=== PATIENT | female | born 1935 | race Caucasian/White ===

== ENCOUNTER 2018-09-19 14:21 | Inpatient (IN) | payer MEDICARE, MEDICAID ==
--- NOTE | 2018-09-19 14:49 | ED Physician Chart ---
ED Chief Complaint/HPI - Patient Information Date Seen:: 09/19/18 Time Seen:: 14:25 Chief Complaint:: AMS History of Present Illness:: onset x one day of ALOC and AMS with elevated Blood Glucose; no report of trauma , H/As, LOC, S/T, neck pain, C/P, SOB, Abd. Pain, A/N/V/D/C, fever, chills, or urinary s/s Historian:: Patient, EMS Review:: Nurse's Note Reviewed, Old Chart Reviewed, EMS run form Reviewed ED Review of Systems - Review of Systems General/Constitutional: No fever, No chills, No weight loss, No weakness, No diaphoresis, No edema, No loss of appetite Skin: No skin lesions, No rash, No bruising Head: No headache, No light-headedness Eyes: No loss of vision, No pain, No diplopia ENT: No earache, No nasal drainage, No sore throat, No tinnitus Neck: No neck pain, No swelling, No thyromegaly, No stiffness, No mass noted Cardio Vascular: No chest pain, No palpitations, No PND, No orthopnea, No edema Pulmonary: No SOB, No cough, No sputum, No wheezing GI: No nausea, No vomiting, No diarrhea, No pain, No melena, No hematochezia, No constipation, No hematemesis G/U: No dysuria, No frequency, No hematuria, No nacturia Medical Center Representative: No vaginal discharge, No abnormal vaginal bleed, No contraction Musculoskeletal: No bone or joint pain, No back pain, No muscle pain Endocrine: No polyuria, No polydipsia Psychiatric: No prior psych history, No depression, No anxiety, No suicidal ideation, No homicidal ideation, No auditory hallucination, No visual hallucination Hematopoietic: No bruising, No lymphadenopathy Allergic/Immuno: No urticaria, No angioedema Neurological: No syncope, No focal symptoms, No weakness, No paresthesia, No headache, No seizure, No dizziness, Confusion, No vertigo ED Past Medical History - Past Medical History Obtainable: Yes Past Medical History: HTN, DM, Dyslipidemia, Arthritis, Dementia Family History: Diabetes Melitus, HTN Social History: Non Smoker, No Alcohol, No Drug Use, Surgical History: None Psychiatricy History: Dementia Medication: Reviewed Family Medical History - Family Member Mother History Unknown: Yes ED Physical Exam - Physical Examination General/Constitutional: Awake, Well-developed, well-nourished, Alert, No distress, GCS 15, Non-toxic appearing, Ambulatory Head: Atraumatic Eyes: Lids, conjuctiva normal, PERRL, EOMI Skin: Nl inspection, No rash, No skin lesions, No ecchymosis, Well hydrated, No lymphadenopathy ENMT: External ears, nose nl, TM canals nl, Nasal exam nl, Lips, teeth, gums nl , Oropharynx nl, Tonsils nl Neck: Nontender, Full ROM w/o pain, No JVD, No nuchal rigidity, No bruit, No mass, No stridor Respiratory: Nl effort/Exclusion, Clear to Auscultation, No Wheeze/Rhonchi/Rales Cardio Vascular: RRR, No murmur, gallop, rubs, NL S1 S2, Carotid/Femoral/Distal pulses equal bilaterally GI: No tenderness/rebounding/guarding, No organomegaly, No hernia, Normal BS's, Nondistended, No mass/bruits, No McBurney tenderness : No CVA tenderness Extremities: No tenderness or effusion, Full ROM, normal strength in all extremities, No edema, Normal digits & nails Neuro/Psych: Alert/oriented, DTR's symmetric, Normal sensory exam, Normal motor strength, Judgement/insight normal, Mood normal, Normal gait, No focal deficits Misc: Normal back, No paraspinal tenderness ED Labs/Radiology/EKG Results - Lab Results Comments:: Reviewed - EKG Interpretations EKG Time:: 14:58 Rate & Rhythm: 115; ST Comments:: non-specific st-t changes ED Septic Shock - . Is Septic Shock (SBP<90, OR Lactate>4 mmol\L) present?: No ED Reassessment (Disposition) - Reassessment Reassessment Condition:: Improved - Diagnosis Diagnosis:: Tachycardia; Dehydration; Hyperglycemia; Hypernatremia; Lactic Acidosis; Leukpocytosis; UTI; Sepsis - Aftercare/Follow up Instructions Aftercare/Follow-Up Instructions:: Counseled pt regarding lab results/diagnosis & need follow up, Counseled pt & family regarding lab results/diagnosis & need follow up - Patient Disposition Discharge/Transfer:: Acute Care w/in this hosp Accepting Physician:: Dr. Christie Time Called:: 1700 Time Responded:: 17:00 Admitted to:: Telemetry Spoke to:: Dr. Christie Admitting Medical Physician:: Dr. Christie Condition at Disposition:: Stable, Improved
[2018-09-19] MEDS ORDERED: Sodium Chloride 0.9% 1,000 ML IV ONE (14:52)
[2018-09-19 15:27] LABS: % BASOPHILS 0.3 % (0.0-2.0); % EOSINOPHILS 0.7 % (0.0-5.0); % LYMPHOCYTES 16.9 % (20.0-50.0); % MONOCYTES 4.8 % (2.0-10.0); % NEUTROPHILS 77.3 % (40.0-80.0); EOSINOPHILE ABSOLUTE 0.1 Th/cmm (0.1-0.4); HEMATOCRIT 39.6 % (41.0-60); HEMOGLOBIN 12.8 gm/dL (12-16); LYMPHOCYTE ABSOLUTE 2.2 Th/cmm (1.5-3.0); MEAN CORPUSCULAR HEMOGLOBIN 29.7 pg (27.0-31.0); MEAN CORPUSCULAR HGB CONC 32.3 pg (28.0-36.0); MEAN PLATELET VOLUME 7.4 fl; MONOCYTE ABSOLUTE 0.6 Th/cmm (0.3-1.0); NEUTROPHILE ABSOLUTE 9.9 Th/cmm (1.8-8.0); PLATELET COUNT 464 Th/cmm (150-400); RED CELL DISTRIBUTION WIDTH 13.9 % (11.5-20.0); WHITE BLOOD COUNT 12.8 Th/cmm (4.8-10.8)
[2018-09-19 15:31] LABS: URINE SOURCE MIDSTREAM
[2018-09-19 15:38] LABS: ALB/GLOB RATIO 0.9 (1.0-1.8); ALBUMIN 3.6 gm/dL (3.7-5.3); ALKALINE PHOSPHATASE 97 U/L (34-104); AMYLASE SERUM 31 U/L (29-103); ANION GAP 13.8 (7.0-16.0); BILIRUBIN,TOTAL 0.2 mg/dL (0.3-1.0); BUN - UREA NITROGEN 53 mg/dL (7-25); CALCIUM SERUM 9.7 mg/dL (8.6-10.3); CARBON DIOXIDE 26.7 mEq/L (21.0-31.0); CHLORIDE 132 mEq/L (98-107); CHOLESTEROL 150 mg/dL (<200); CREATININE - SERUM 1.3 mg/dL (0.6-1.2); CREATININE KINASE 277 U/L (30-223); GLUCOSE 119 mg/dL (70-105); HDL -HIGH DENSITY LIPOPROTEIN 47 mg/dL (23-92); LIPASE 19 U/L (11-82); POTASSIUM SERUM 3.5 mEq/L (3.5-5.1); SGOT 20 U/L (13-39); SGPT/ALT 20 U/L (7-52); TOTAL PROTEIN,SERUM 7.5 gm/dL (6.0-8.3); TRIGLYCERIDES 117 mg/dL (<150)
[2018-09-19 15:40] LABS: SODIUM SERUM 169 mEq/L (136-145)
[2018-09-19 15:45] LABS: INR 0.93 (0.5-1.4); PROTHROMBIN TIME (TEST) 9.7 SECONDS (9.5-11.5)
[2018-09-19] MEDS ORDERED: Sodium Chloride 0.9% 500 ML IV ONE (15:48)
[2018-09-19 16:49] LABS: URINE BILIRUBIN NEGATIVE (NEGATIVE); URINE BLOOD LARGE (NEGATIVE); URINE GLUCOSE (UA) 500 mg/dL (NEGATIVE); URINE KETONE NEGATIVE (NEGATIVE); URINE LEUKOCYTE ESTERASE LARGE (NEGATIVE); URINE MICROSCOPIC INDICATED? YES; URINE NITRATE NEGATIVE (NEGATIVE); URINE PH 7.5 (4.6 - 8.0); URINE PROTEIN 100 mg/dL (NEGATIVE); URINE UROBILINOGEN 0.2 E.U./dL (0.2 - 1.0)
[2018-09-19 16:52] LABS: URINE CLARITY HAZY (CLEAR); URINE COLOR YELLOW
[2018-09-19 16:56] LABS: URINE BACTERIA 4+ /hpf (NONE SEEN); URINE EPITHELIAL CELLS FEW /lpf (FEW); URINE TRIPLE PHOSPHATE CRYSTAL FEW /hpf (FEW); URINE WBC 25-50 /hpf (0-5)
[2018-09-19] MEDS ORDERED: cefTRIAXone 1 GM in Sodium Chloride 0.9% 50 ML IV ONE (17:13)
[2018-09-19 21:46] VITALS: BP 112/64
[2018-09-19] MEDS ORDERED: Dextrose 5% 1,000 ML IV SCH (21:59)
[2018-09-19] MEDS ORDERED: Pneumococcal Vaccine 0.5 mL Vial IM ONE (22:42)
[2018-09-19] MEDS: INSULIN ASPART SLIDING SCALE 100 UNITS/ML UNIT SUBQ SCH (23:07)
[2018-09-19] MEDS ORDERED: Piperacillin Sodium/Tazobact 2.25 gm Vial IV ONE (23:18)
[2018-09-20] MEDS ORDERED: INSULIN ASPART SLIDING SCALE 100 UNITS/ML UNIT SUBQ SCH
[2018-09-20] MEDS ORDERED: Piperacillin Sodium/Tazobact 2.25 gm Vial IV ONE (04:23)
[2018-09-20] MEDS: INSULIN ASPART SLIDING SCALE 100 UNITS/ML UNIT SUBQ SCH ×4 (08:32→21:25)
--- NOTE | 2018-09-20 08:33 | History and Physical ---
History of Present Illness - HPI Chief Complaint: ALOC HPI: Patient was send from SNF due to ALOC and change in mental status. She was evaluated in ER and was found Hyperglycemia, Lactic acidosis, elevated WBC and UTI. 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: Dementia GI: Report: No Pertinent Hx Psych: Report: Psychosis Musculoskeletal: Report: Weakness, Stiffness Rheumatologic: Report: No pertinent Hx Infectious Disease: Report: No Pertinent Hx Renal/: Report: No Pertinent Hx Endocrine: Report: Diabetes Dermatology: Report: No Pertinent Hx - Past Surgical History Past Surgical History: No pertinent Hx Family Medical History - Family Member Mother History Unknown: Yes Social History Smoke: No Alcohol: None Drugs: None [place]: [place] Domestic Violence: Negative - Medications Home Medications: Home Medication Medication Instructions Recorded Type Alendronate Sodium [Fosamax*] 70 mg PO QWEEK 0730 09/19/18 History Cholecalciferol (Vitamin D3) 1,000 unit PO DAILY 09/19/18 History [Vitamin D3] Cranberry 450 mg PO DAILY 09/19/18 History Docusate Sodium [Colace] 100 mg PO BID 09/19/18 History Donepezil Hcl [Aricept] 5 mg PO HS 09/19/18 History GLUCAGON HCl [Glucagen] 1 mg IM ACHS PRN 09/19/18 History Insulin Glargine,Hum.rec.anlog 17 unit SUBQ HS 09/19/18 History [Lantus Solostar] Insulin Human Isophane (NPH) 10 units SQ BIDAC 09/19/18 History [NovoLIN N] Insulin Regular, Human [Humulin R] See Protocol SQ ACHS 09/19/18 History Multivitamin w/ Minerals 1 tab PO DAILY 09/19/18 History [Theragran M] Simvastatin [Zocor] 40 mg PO HS 09/19/18 History amLODIPine Besylate [Norvasc] 2.5 mg PO Q12HR 09/19/18 History - Allergies Allergies/Adverse Reactions: Allergies Allergy/AdvReac Type Severity Reaction Status Date / Time No Known Allergies Allergy Verified 09/19/18 15:12 Review of Systems - Review of Systems Constitutional: Report: Weakness Eyes: Report: No Significant ENT: Report: No Significant Respiratory: Report: No Significant, Shortness of Breath Cardiovascular: Report: No Significant Gastrointestinal: Report: No Significant Genitourinary: Report: No Significant Musculoskeletal: Report: No Significant Skin: Report: No Significant Neurological: Report: Weakness Physical Exam - Physical Exam HEENT: Report: Ears Nose Throat within normal limits Neck: Report: Within normal limits Cardiovascular Systems: Report: Regular, Rate and Rhythm Respiratory: Report: Breath Sounds are within normal limits Abdomen: Report: Non-tender to palpation Back: Report: Inspection of back is within normal limits. Extremities: Report: Non-tender to palpation. Skin: Report: Color of skin is within normal limits, Warm Neuro/Psych: Report: Disoriented to name time or place, Other (Confused.) - Lab Results All Lab Results last 24 hours: Laboratory Results - last 24 hr 09/19/18 09/19/18 09/19/18 15:15 15:15 15:15 WBC 12.8 H RBC 4.30 Hgb 12.8 Hct 39.6 L MCV 92.0 MCH 29.7 MCHC Differential 32.3 RDW 13.9 Plt Count 464 H MPV 7.4 Neutrophils % 77.3 Lymphocytes % 16.9 L Monocytes % 4.8 Eosinophils % 0.7 Basophils % 0.3 PT INR PTT (Actin FS) Sodium 169 H* Potassium 3.5 Chloride 132 H Carbon Dioxide 26.7 Anion Gap 13.8 BUN 53 H Creatinine 1.3 H Est GFR ( Amer) TNP Est GFR (Non-Af Amer) TNP BUN/Creatinine Ratio 40.8 Glucose 119 H POC Glucose Whole Bld Lactic Acid Calcium 9.7 Total Bilirubin 0.2 L AST 20 ALT 20 Alkaline Phosphatase 97 Creatine Kinase 277 H CK-MB (CK-2) 7.2 H Troponin I B-Natriuretic Peptide 154.0 H Total Protein 7.5 Albumin 3.6 L Globulin 3.9 Albumin/Globulin Ratio 0.9 L Triglycerides 117 Cholesterol 150 LDL Cholesterol Direct 76 HDL Cholesterol 47 Amylase 31 Lipase 19 Urine Source Urine Color Urine Clarity Urine pH Ur Specific [place] Urine Protein Urine Glucose (UA) Urine Ketones Urine Blood Urine Nitrate Urine Bilirubin Urine Urobilinogen Ur Leukocyte Esterase Urine RBC Urine WBC Ur Epithelial Cells Triple Phos Crystals Urine Bacteria Serum Ketones 09/19/18 09/19/18 09/19/18 15:15 15:15 15:15 WBC RBC Hgb Hct MCV MCH MCHC Differential RDW Plt Count MPV Neutrophils % Lymphocytes % Monocytes % Eosinophils % Basophils % PT 9.7 INR 0.93 PTT (Actin FS) 21.2 L Sodium Potassium Chloride Carbon Dioxide Anion Gap BUN Creatinine Est GFR ( Amer) Est GFR (Non-Af Amer) BUN/Creatinine Ratio Glucose POC Glucose Whole Bld Lactic Acid Calcium Total Bilirubin AST ALT Alkaline Phosphatase Creatine Kinase CK-MB (CK-2) Troponin I 0.04 B-Natriuretic Peptide Total Protein Albumin Globulin Albumin/Globulin Ratio Triglycerides Cholesterol LDL Cholesterol Direct HDL Cholesterol Amylase Lipase Urine Source Urine Color Urine Clarity Urine pH Ur Specific [place] Urine Protein Urine Glucose (UA) Urine Ketones Urine Blood Urine Nitrate Urine Bilirubin Urine Urobilinogen Ur Leukocyte Esterase Urine RBC Urine WBC Ur Epithelial Cells Triple Phos Crystals Urine Bacteria Serum Ketones NEGATIVE 09/19/18 09/19/18 09/19/18 15:15 15:15 17:03 WBC RBC Hgb Hct MCV MCH MCHC Differential RDW Plt Count MPV Neutrophils % Lymphocytes % Monocytes % Eosinophils % Basophils % PT INR PTT (Actin FS) Sodium Potassium Chloride Carbon Dioxide Anion Gap BUN Creatinine Est GFR ( Amer) Est GFR (Non-Af Amer) BUN/Creatinine Ratio Glucose POC Glucose 89 Whole Bld Lactic Acid 2.11 H* Calcium Total Bilirubin AST ALT Alkaline Phosphatase Creatine Kinase CK-MB (CK-2) Troponin I B-Natriuretic Peptide Total Protein Albumin Globulin Albumin/Globulin Ratio Triglycerides Cholesterol LDL Cholesterol Direct HDL Cholesterol Amylase Lipase Urine Source MIDSTREAM Urine Color YELLOW Urine Clarity HAZY Urine pH 7.5 Ur Specific [place] 1.020 Urine Protein 100 H Urine Glucose (UA) 500 H Urine Ketones NEGATIVE Urine Blood LARGE H Urine Nitrate NEGATIVE Urine Bilirubin NEGATIVE Urine Urobilinogen 0.2 Ur Leukocyte Esterase LARGE H Urine RBC 5-10 H Urine WBC 25-50 H Ur Epithelial Cells FEW Triple Phos Crystals FEW Urine Bacteria 4+ H Serum Ketones 09/19/18 09/19/18 09/19/18 18:12 19:00 21:01 WBC RBC Hgb Hct MCV MCH MCHC Differential RDW Plt Count MPV Neutrophils % Lymphocytes % Monocytes % Eosinophils % Basophils % PT INR PTT (Actin FS) Sodium Potassium Chloride Carbon Dioxide Anion Gap BUN Creatinine Est GFR ( Amer) Est GFR (Non-Af Amer) BUN/Creatinine Ratio Glucose POC Glucose 106 H 171 H Whole Bld Lactic Acid 0.78 Calcium Total Bilirubin AST ALT Alkaline Phosphatase Creatine Kinase CK-MB (CK-2) Troponin I B-Natriuretic Peptide Total Protein Albumin Globulin Albumin/Globulin Ratio Triglycerides Cholesterol LDL Cholesterol Direct HDL Cholesterol Amylase Lipase Urine Source Urine Color Urine Clarity Urine pH Ur Specific [place] Urine Protein Urine Glucose (UA) Urine Ketones Urine Blood Urine Nitrate Urine Bilirubin Urine Urobilinogen Ur Leukocyte Esterase Urine RBC Urine WBC Ur Epithelial Cells Triple Phos Crystals Urine Bacteria Serum Ketones 09/20/18 05:14 WBC RBC Hgb Hct MCV MCH MCHC Differential RDW Plt Count MPV Neutrophils % Lymphocytes % Monocytes % Eosinophils % Basophils % PT INR PTT (Actin FS) Sodium Potassium Chloride Carbon Dioxide Anion Gap BUN Creatinine Est GFR ( Amer) Est GFR (Non-Af Amer) BUN/Creatinine Ratio Glucose POC Glucose 294 H Whole Bld Lactic Acid Calcium Total Bilirubin AST ALT Alkaline Phosphatase Creatine Kinase CK-MB (CK-2) Troponin I B-Natriuretic Peptide Total Protein Albumin Globulin Albumin/Globulin Ratio Triglycerides Cholesterol LDL Cholesterol Direct HDL Cholesterol Amylase Lipase Urine Source Urine Color Urine Clarity Urine pH Ur Specific [place] Urine Protein Urine Glucose (UA) Urine Ketones Urine Blood Urine Nitrate Urine Bilirubin Urine Urobilinogen Ur Leukocyte Esterase Urine RBC Urine WBC Ur Epithelial Cells Triple Phos Crystals Urine Bacteria Serum Ketones - Assessment Assessment: Patient is in IV D5, IV AB, Continue with same diet and SNF meds. Dx: Sepsis secondary to UTI, Dehydration, Hypernatremia, HTN, DM, Dyslipemia, Dementia. - Plan Plan: Patient is IV D5, IV AB, and continue with SNF meds. Patient is DNR. Will continue to monitor.
[2018-09-20] MEDS: Multivitamin w/ Minerals Tab PO SCH (08:35)
[2018-09-20] MEDS ORDERED: Non-Formulary Item 1 EA (Cranberry [Cranberry] 450 MG) PO SCH (09:00)
[2018-09-20 09:04] LABS: % BASOPHILS 0.5 % (0.0-2.0); % EOSINOPHILS 2.2 % (0.0-5.0); % LYMPHOCYTES 18.1 % (20.0-50.0); % NEUTROPHILS 75.2 % (40.0-80.0); BASOPHILE ABSOLUTE 0.1 Th/cumm (0-0.2); EOSINOPHILE ABSOLUTE 0.2 Th/cmm (0.1-0.4); HEMATOCRIT 37.7 % (41.0-60); LYMPHOCYTE ABSOLUTE 1.9 Th/cmm (1.5-3.0); MEAN CORPUSCULAR HEMOGLOBIN 29.7 pg (27.0-31.0); MEAN PLATELET VOLUME 7.6 fl; MONOCYTE ABSOLUTE 0.4 Th/cmm (0.3-1.0); NEUTROPHILE ABSOLUTE 7.9 Th/cmm (1.8-8.0); PLATELET COUNT 408 Th/cmm (150-400); RED BLOOD COUNT 4.05 Mil/cmm (3.80-5.20); RED CELL DISTRIBUTION WIDTH 14.2 % (11.5-20.0); WHITE BLOOD COUNT 10.5 Th/cmm (4.8-10.8)
[2018-09-20 09:18] LABS: ALB/GLOB RATIO 0.9 (1.0-1.8); ALBUMIN 3.1 gm/dL (3.7-5.3); ALKALINE PHOSPHATASE 85 U/L (34-104); ANION GAP 13.1 (7.0-16.0); BILIRUBIN,TOTAL 0.4 mg/dL (0.3-1.0); BUN - UREA NITROGEN 42 mg/dL (7-25); CALCIUM SERUM 8.6 mg/dL (8.6-10.3); CARBON DIOXIDE 25.5 mEq/L (21.0-31.0); CHLORIDE 130 mEq/L (98-107); CREATININE - SERUM 1.2 mg/dL (0.6-1.2); POTASSIUM SERUM 3.6 mEq/L (3.5-5.1); SGOT 12 U/L (13-39); SGPT/ALT 15 U/L (7-52); TOTAL PROTEIN,SERUM 6.5 gm/dL (6.0-8.3)
[2018-09-20 09:56] LABS: SODIUM SERUM 165 mEq/L (136-145)
[2018-09-20 09:57] LABS: GLUCOSE 505 mg/dL (70-105)
[2018-09-20] MEDS ORDERED: Sodium Chloride 0.45% 1,000 ML IV SCH (10:10)
[2018-09-20] MEDS ORDERED: INSULIN GLARGINE HUM REC ANLOG 17 UNIT SUBQ SCH (21:00)
[2018-09-20] MEDS: Insulin Detemir 100 units/mL 10mL Vial SUBQ SCH (21:25)
[2018-09-21 05:32] LABS: % BASOPHILS 0.3 % (0.0-2.0); % EOSINOPHILS 2.5 % (0.0-5.0); % LYMPHOCYTES 23.4 % (20.0-50.0); % MONOCYTES 3.9 % (2.0-10.0); % NEUTROPHILS 69.9 % (40.0-80.0); EOSINOPHILE ABSOLUTE 0.3 Th/cmm (0.1-0.4); HEMATOCRIT 38.5 % (41.0-60); LYMPHOCYTE ABSOLUTE 2.5 Th/cmm (1.5-3.0); MEAN CELL VOLUME 93.5 fl (81-100); MEAN CORPUSCULAR HEMOGLOBIN 29.2 pg (27.0-31.0); MEAN CORPUSCULAR HGB CONC 31.2 pg (28.0-36.0); MEAN PLATELET VOLUME 7.5 fl; MONOCYTE ABSOLUTE 0.4 Th/cmm (0.3-1.0); NEUTROPHILE ABSOLUTE 7.6 Th/cmm (1.8-8.0); PLATELET COUNT 383 Th/cmm (150-400); RED BLOOD COUNT 4.11 Mil/cmm (3.80-5.20); RED CELL DISTRIBUTION WIDTH 15.3 % (11.5-20.0); WHITE BLOOD COUNT 10.8 Th/cmm (4.8-10.8)
[2018-09-21 05:49] LABS: ALBUMIN 3.2 gm/dL (3.7-5.3); ALKALINE PHOSPHATASE 81 U/L (34-104); ANION GAP 15.2 (7.0-16.0); BILIRUBIN,TOTAL 0.4 mg/dL (0.3-1.0); BUN - UREA NITROGEN 33 mg/dL (7-25); CALCIUM SERUM 8.5 mg/dL (8.6-10.3); CARBON DIOXIDE 22.1 mEq/L (21.0-31.0); CHLORIDE 135 mEq/L (98-107); CREATININE - SERUM 1.1 mg/dL (0.6-1.2); POTASSIUM SERUM 3.3 mEq/L (3.5-5.1); SGOT 20 U/L (13-39); SGPT/ALT 15 U/L (7-52); TOTAL PROTEIN,SERUM 6.5 gm/dL (6.0-8.3)
[2018-09-21 05:52] LABS: GLUCOSE 64 mg/dL (70-105); SODIUM SERUM 169 mEq/L (136-145)
[2018-09-21] MEDS ORDERED: Dextrose 50% 50 mL Abboject IVP ONE (05:55)
[2018-09-21] MEDS: INSULIN ASPART SLIDING SCALE 100 UNITS/ML UNIT SUBQ SCH ×5 (07:00→21:22)
[2018-09-21] MEDS: Multivitamin w/ Minerals Tab PO SCH (09:14)
[2018-09-21] MEDS: Dextrose 5% 1,000 ML IV SCH ×2 (09:14→23:00)
--- NOTE | 2018-09-21 09:19 | General Progress Note ---
Subjective - Review of Systems Service Date: 09/21/18 Subjective: Patient is confused Objective - Results Result Diagrams: 09/21/18 05:00 09/21/18 05:00 Recent Labs: Laboratory Last Values WBC 10.8 Th/cmm (4.8-10.8) 09/21/18 05:00 RBC 4.11 Mil/cmm (3.80-5.20) 09/21/18 05:00 Hgb 12.0 gm/dL (12-16) 09/21/18 05:00 Hct 38.5 % (41.0-60) L 09/21/18 05:00 MCV 93.5 fl (81-100) 09/21/18 05:00 MCH 29.2 pg (27.0-31.0) 09/21/18 05:00 MCHC Differential 31.2 pg (28.0-36.0) 09/21/18 05:00 RDW 15.3 % (11.5-20.0) 09/21/18 05:00 Plt Count 383 Th/cmm (150-400) 09/21/18 05:00 MPV 7.5 fl 09/21/18 05:00 Neutrophils % 69.9 % (40.0-80.0) 09/21/18 05:00 Lymphocytes % 23.4 % (20.0-50.0) 09/21/18 05:00 Monocytes % 3.9 % (2.0-10.0) 09/21/18 05:00 Eosinophils % 2.5 % (0.0-5.0) 09/21/18 05:00 Basophils % 0.3 % (0.0-2.0) 09/21/18 05:00 PT 9.7 SECONDS (9.5-11.5) 09/19/18 15:15 INR 0.93 (0.5-1.4) 09/19/18 15:15 PTT (Actin FS) 21.2 SECONDS (26.0-38.0) L 09/19/18 15:15 Sodium 169 mEq/L (136-145) H* 09/21/18 05:00 Potassium 3.3 mEq/L (3.5-5.1) L 09/21/18 05:00 Chloride 135 mEq/L (98-107) H 09/21/18 05:00 Carbon Dioxide 22.1 mEq/L (21.0-31.0) 09/21/18 05:00 Anion Gap 15.2 (7.0-16.0) 09/21/18 05:00 BUN 33 mg/dL (7-25) H 09/21/18 05:00 Creatinine 1.1 mg/dL (0.6-1.2) 09/21/18 05:00 Est GFR ( Amer) TNP 09/21/18 05:00 Est GFR (Non-Af Amer) TNP 09/21/18 05:00 BUN/Creatinine Ratio 30.0 09/21/18 05:00 Glucose 64 mg/dL (70-105) L D 09/21/18 05:00 POC Glucose 194 MG/DL (70 - 105) H 09/21/18 06:51 Whole Bld Lactic Acid 0.78 mmol/L (0.60-1.99) 09/19/18 19:00 Calcium 8.5 mg/dL (8.6-10.3) L 09/21/18 05:00 Total Bilirubin 0.4 mg/dL (0.3-1.0) 09/21/18 05:00 AST 20 U/L (13-39) 09/21/18 05:00 ALT 15 U/L (7-52) 09/21/18 05:00 Alkaline Phosphatase 81 U/L (34-104) 09/21/18 05:00 Creatine Kinase 277 U/L (30-223) H 09/19/18 15:15 CK-MB (CK-2) 7.2 ng/mL (0.6-6.3) H 09/19/18 15:15 Troponin I 0.04 ng/mL (0.01-0.05) 09/19/18 15:15 B-Natriuretic Peptide 154.0 pg/mL (5.0-100.0) H 09/19/18 15:15 Total Protein 6.5 gm/dL (6.0-8.3) 09/21/18 05:00 Albumin 3.2 gm/dL (3.7-5.3) L 09/21/18 05:00 Globulin 3.3 gm/dL 09/21/18 05:00 Albumin/Globulin Ratio 1.0 (1.0-1.8) 09/21/18 05:00 Triglycerides 117 mg/dL (<150) 09/19/18 15:15 Cholesterol 150 mg/dL (<200) 09/19/18 15:15 LDL Cholesterol Direct 76 mg/dL (75-193) 09/19/18 15:15 HDL Cholesterol 47 mg/dL (23-92) 09/19/18 15:15 Amylase 31 U/L (29-103) 09/19/18 15:15 Lipase 19 U/L (11-82) 09/19/18 15:15 Urine Source MIDSTREAM 09/19/18 15:15 Urine Color YELLOW 09/19/18 15:15 Urine Clarity HAZY (CLEAR) 09/19/18 15:15 Urine pH 7.5 (4.6 - 8.0) 09/19/18 15:15 Ur Specific [place] 1.020 (1.005-1.030) 09/19/18 15:15 Urine Protein 100 mg/dL (NEGATIVE) H 09/19/18 15:15 Urine Glucose (UA) 500 mg/dL (NEGATIVE) H 09/19/18 15:15 Urine Ketones NEGATIVE mg/dL (NEGATIVE) 09/19/18 15:15 Urine Blood LARGE (NEGATIVE) H 09/19/18 15:15 Urine Nitrate NEGATIVE (NEGATIVE) 09/19/18 15:15 Urine Bilirubin NEGATIVE (NEGATIVE) 09/19/18 15:15 Urine Urobilinogen 0.2 E.U./dL (0.2 - 1.0) 09/19/18 15:15 Ur Leukocyte Esterase LARGE (NEGATIVE) H 09/19/18 15:15 Urine RBC 5-10 /hpf (0-5) H 09/19/18 15:15 Urine WBC 25-50 /hpf (0-5) H 09/19/18 15:15 Ur Epithelial Cells FEW /lpf (FEW) 09/19/18 15:15 Triple Phos Crystals FEW /hpf (FEW) 09/19/18 15:15 Urine Bacteria 4+ /hpf (NONE SEEN) H 09/19/18 15:15 Serum Ketones NEGATIVE (NEGATIVE) 09/19/18 15:15 - Physical Exam Vitals and I&O: Vital Signs Temp 97.4 F 09/21/18 08:10 Pulse 95 09/21/18 08:10 Resp 18 09/21/18 08:10 BP 107/72 09/21/18 08:10 Pulse Ox 98 09/21/18 08:10 Intake & Output 09/20/18 09/21/18 09/21/18 18:59 06:59 18:59 Intake Total 1744 656 Balance 1744 656 Weight (lbs) 46.448 kg 46.266 kg Intake: Intake, IV Amount 844 356 Piperacillin Sodium/ 100 100 Tazobact 2.25 gm In Sodium Chloride 0.9% 50 ml @ 100 mls/hr IV Q6HR [facility] Rx#:[id number] Sodium Chloride 0.45% 1, 744 256 000 ml @ 90 mls/hr IV . Q11H7M [facility] Rx#:[id number] Oral 900 300 Other: # Voids 4 3 # Bowel Movements 1 1 Weight Source Bedscale Bedscale Active Medications: Current Medications Acetaminophen (Tylenol 650mg/20.3ml Suspension) 650 mg PO Q6H PRN PRN Reason: Pain or Fever >101 Stop: 11/18/18 22:24 Last Admin: 09/19/18 22:53 Dose: 650 mg Amlodipine Besylate (Norvasc) 2.5 mg PO Q12HR [facility] Stop: 11/19/18 08:59 Last Admin: 09/20/18 21:19 Dose: Not Given Cholecalciferol (Vitamin D3) 1,000 iu PO DAILY [facility] Stop: 11/19/18 08:59 Last Admin: 09/21/18 09:13 Dose: 1,000 iu Docusate Sodium (Colace) 100 mg PO BID [facility] Stop: 11/19/18 08:59 Last Admin: 09/21/18 09:14 Dose: 100 mg Donepezil HCl (Aricept) 5 mg PO HS [facility] Stop: 11/19/18 20:59 Last Admin: 09/20/18 21:17 Dose: 5 mg Piperacillin Sod/Tazobactam (Sod 2.25 gm/ Sodium Chloride) 50 mls @ 100 mls/hr IV Q6HR [facility]; Protocol Stop: 11/19/18 00:00 Last Infusion: 09/21/18 06:05 Dose: Infused Dextrose (D5w) 1,000 mls @ 90 mls/hr IV .Q11H7M [facility] Stop: 11/20/18 07:44 Last Admin: 09/21/18 09:14 Dose: 90 mls/hr Potassium Chloride (Potassium Chloride) 20 meq in 100 mls @ 50 mls/hr IV ONCE ONE Stop: 09/21/18 11:29 Insulin Aspart (Novolog Insulin Sliding Scale) 0 units SUBQ Q4HR [facility]; Protocol Stop: 11/20/18 07:59 Last Admin: 09/21/18 09:15 Dose: 2 units Insulin Detemir (Levemir Insulin) 17 units SUBQ HS [facility] Stop: 11/19/18 20:59 Last Admin: 09/20/18 21:25 Dose: 17 units Simvastatin (Zocor) 40 mg PO HS [facility]; Protocol Stop: 11/19/18 20:59 Last Admin: 09/20/18 21:17 Dose: 40 mg Tramadol HCl (Ultram) 50 mg PO Q6HR PRN PRN Reason: Pain (Moderate) Stop: 11/18/18 22:23 General: Alert, Other (Confused) HEENT: Atraumatic Neck: Supple Cardiovascular: Regular rate Lungs: Clear to auscultation Abdomen: Bowel sounds Extremities: Other (No edema) Neurological: Other (Non ambulatory) Skin: Other (Warm and dry) Psych/Mental Status: Other (Confused) Assessment/Plan - Assessment Assessment: Patient is in IV D5, IV AB, Continue with same diet and SNF meds. Na still high and patient is more alert. Dx: Sepsis secondary to UTI, Dehydration, Hypernatremia, HTN, DM, Dyslipemia, Dementia. - Plan Plan: Patient is IV D5, IV AB, and continue with SNF meds. Patient is DNR. Will continue to monitor.
[2018-09-21] MEDS ORDERED: KCL 20mEq/100mL Premix 20 MEQ/100 ML PIGGYBACK IV ONE (09:30)
[2018-09-21] MEDS: Insulin Detemir 100 units/mL 10mL Vial SUBQ SCH (21:30)
[2018-09-22] MEDS: INSULIN ASPART SLIDING SCALE 100 UNITS/ML UNIT SUBQ SCH ×6 (00:14→21:08)
[2018-09-22] MEDS: Multivitamin w/ Minerals Tab PO SCH (08:12)
--- NOTE | 2018-09-22 09:16 | General Progress Note ---
Subjective - Review of Systems Service Date: 09/22/18 Subjective: Patient is confused. Objective - Results Result Diagrams: 09/21/18 05:00 09/21/18 05:00 Recent Labs: Laboratory Last Values WBC 10.8 Th/cmm (4.8-10.8) 09/21/18 05:00 RBC 4.11 Mil/cmm (3.80-5.20) 09/21/18 05:00 Hgb 12.0 gm/dL (12-16) 09/21/18 05:00 Hct 38.5 % (41.0-60) L 09/21/18 05:00 MCV 93.5 fl (81-100) 09/21/18 05:00 MCH 29.2 pg (27.0-31.0) 09/21/18 05:00 MCHC Differential 31.2 pg (28.0-36.0) 09/21/18 05:00 RDW 15.3 % (11.5-20.0) 09/21/18 05:00 Plt Count 383 Th/cmm (150-400) 09/21/18 05:00 MPV 7.5 fl 09/21/18 05:00 Neutrophils % 69.9 % (40.0-80.0) 09/21/18 05:00 Lymphocytes % 23.4 % (20.0-50.0) 09/21/18 05:00 Monocytes % 3.9 % (2.0-10.0) 09/21/18 05:00 Eosinophils % 2.5 % (0.0-5.0) 09/21/18 05:00 Basophils % 0.3 % (0.0-2.0) 09/21/18 05:00 PT 9.7 SECONDS (9.5-11.5) 09/19/18 15:15 INR 0.93 (0.5-1.4) 09/19/18 15:15 PTT (Actin FS) 21.2 SECONDS (26.0-38.0) L 09/19/18 15:15 Sodium 169 mEq/L (136-145) H* 09/21/18 05:00 Potassium 3.3 mEq/L (3.5-5.1) L 09/21/18 05:00 Chloride 135 mEq/L (98-107) H 09/21/18 05:00 Carbon Dioxide 22.1 mEq/L (21.0-31.0) 09/21/18 05:00 Anion Gap 15.2 (7.0-16.0) 09/21/18 05:00 BUN 33 mg/dL (7-25) H 09/21/18 05:00 Creatinine 1.1 mg/dL (0.6-1.2) 09/21/18 05:00 Est GFR ( Amer) TNP 09/21/18 05:00 Est GFR (Non-Af Amer) TNP 09/21/18 05:00 BUN/Creatinine Ratio 30.0 09/21/18 05:00 Glucose 64 mg/dL (70-105) L D 09/21/18 05:00 POC Glucose 60 MG/DL (70 - 105) L 09/22/18 08:37 Whole Bld Lactic Acid 0.78 mmol/L (0.60-1.99) 09/19/18 19:00 Calcium 8.5 mg/dL (8.6-10.3) L 09/21/18 05:00 Total Bilirubin 0.4 mg/dL (0.3-1.0) 09/21/18 05:00 AST 20 U/L (13-39) 09/21/18 05:00 ALT 15 U/L (7-52) 09/21/18 05:00 Alkaline Phosphatase 81 U/L (34-104) 09/21/18 05:00 Creatine Kinase 277 U/L (30-223) H 09/19/18 15:15 CK-MB (CK-2) 7.2 ng/mL (0.6-6.3) H 09/19/18 15:15 Troponin I 0.04 ng/mL (0.01-0.05) 09/19/18 15:15 B-Natriuretic Peptide 154.0 pg/mL (5.0-100.0) H 09/19/18 15:15 Total Protein 6.5 gm/dL (6.0-8.3) 09/21/18 05:00 Albumin 3.2 gm/dL (3.7-5.3) L 09/21/18 05:00 Globulin 3.3 gm/dL 09/21/18 05:00 Albumin/Globulin Ratio 1.0 (1.0-1.8) 09/21/18 05:00 Triglycerides 117 mg/dL (<150) 09/19/18 15:15 Cholesterol 150 mg/dL (<200) 09/19/18 15:15 LDL Cholesterol Direct 76 mg/dL (75-193) 09/19/18 15:15 HDL Cholesterol 47 mg/dL (23-92) 09/19/18 15:15 Amylase 31 U/L (29-103) 09/19/18 15:15 Lipase 19 U/L (11-82) 09/19/18 15:15 Urine Source MIDSTREAM 09/19/18 15:15 Urine Color YELLOW 09/19/18 15:15 Urine Clarity HAZY (CLEAR) 09/19/18 15:15 Urine pH 7.5 (4.6 - 8.0) 09/19/18 15:15 Ur Specific [place] 1.020 (1.005-1.030) 09/19/18 15:15 Urine Protein 100 mg/dL (NEGATIVE) H 09/19/18 15:15 Urine Glucose (UA) 500 mg/dL (NEGATIVE) H 09/19/18 15:15 Urine Ketones NEGATIVE mg/dL (NEGATIVE) 09/19/18 15:15 Urine Blood LARGE (NEGATIVE) H 09/19/18 15:15 Urine Nitrate NEGATIVE (NEGATIVE) 09/19/18 15:15 Urine Bilirubin NEGATIVE (NEGATIVE) 09/19/18 15:15 Urine Urobilinogen 0.2 E.U./dL (0.2 - 1.0) 09/19/18 15:15 Ur Leukocyte Esterase LARGE (NEGATIVE) H 09/19/18 15:15 Urine RBC 5-10 /hpf (0-5) H 09/19/18 15:15 Urine WBC 25-50 /hpf (0-5) H 09/19/18 15:15 Ur Epithelial Cells FEW /lpf (FEW) 09/19/18 15:15 Triple Phos Crystals FEW /hpf (FEW) 09/19/18 15:15 Urine Bacteria 4+ /hpf (NONE SEEN) H 09/19/18 15:15 Serum Ketones NEGATIVE (NEGATIVE) 09/19/18 15:15 - Physical Exam Vitals and I&O: Vital Signs Temp 98.8 F 09/22/18 08:00 Pulse 79 11/02/18 08:13 Resp 18 09/22/18 08:00 BP 112/63 09/22/18 08:13 Pulse Ox 97 09/22/18 08:00 Intake & Output 09/21/18 09/22/18 09/22/18 18:59 06:59 18:59 Intake Total 100 1200 Balance 100 1200 Weight (lbs) 49.305 kg Intake: Intake, IV Amount 100 1100 Dextrose 5% 1,000 ml @ 90 1000 mls/hr IV .Q11H7M [facility] Rx #:[id number] Piperacillin Sodium/ 100 100 Tazobact 2.25 gm In Sodium Chloride 0.9% 50 ml @ 100 mls/hr IV Q6HR [facility] Rx#:[id number] Oral 100 Other: # Voids 2 # Bowel Movements 0 Weight Source Bedscale Active Medications: Current Medications Acetaminophen (Tylenol 650mg/20.3ml Suspension) 650 mg PO Q6H PRN PRN Reason: Pain or Fever >101 Stop: 11/18/18 22:24 Last Admin: 09/19/18 22:53 Dose: 650 mg Amlodipine Besylate (Norvasc) 2.5 mg PO Q12HR [facility] Stop: 11/19/18 08:59 Last Admin: 09/22/18 08:13 Dose: Not Given Cholecalciferol (Vitamin D3) 1,000 iu PO DAILY [facility] Stop: 11/19/18 08:59 Last Admin: 09/22/18 08:12 Dose: 1,000 iu Docusate Sodium (Colace) 100 mg PO BID [facility] Stop: 11/19/18 08:59 Last Admin: 09/22/18 08:12 Dose: 100 mg Piperacillin Sod/Tazobactam (Sod 2.25 gm/ Sodium Chloride) 50 mls @ 100 mls/hr IV Q6HR [facility]; Protocol Stop: 11/19/18 00:00 Last Infusion: 09/22/18 06:15 Dose: Infused Dextrose (D5w) 1,000 mls @ 100 mls/hr IV .Q10H [facility] Stop: 11/21/18 09:14 Insulin Aspart (Novolog Insulin Sliding Scale) 0 units SUBQ Q4HR [facility]; Protocol Stop: 11/20/18 07:59 Last Admin: 09/22/18 08:23 Dose: Not Given Insulin Detemir (Levemir Insulin) 17 units SUBQ HS [facility] Stop: 11/19/18 20:59 Last Admin: 09/21/18 21:30 Dose: 17 units Simvastatin (Zocor) 40 mg PO HS [facility]; Protocol Stop: 11/19/18 20:59 Last Admin: 09/21/18 22:12 Dose: 40 mg Tramadol HCl (Ultram) 50 mg PO Q6HR PRN PRN Reason: Pain (Moderate) Stop: 11/18/18 22:23 General: Alert, Other (Confused) HEENT: Atraumatic Neck: Supple Cardiovascular: Regular rate Lungs: Clear to auscultation Abdomen: Bowel sounds Extremities: Other (No edema) Neurological: Other (Non ambulatory) Skin: Other (Warm and dry) Psych/Mental Status: Other (Confused) Assessment/Plan - Assessment Assessment: Patient is in IV D5, IV AB, Continue with same diet and SNF meds. Na still high and patient is more alert. Today patient refused blood withdraw. Dx: Sepsis secondary to UTI, Dehydration, Hypernatremia, HTN, DM, Dyslipemia, Dementia. - Plan Plan: Patient is IV D5, IV AB, and continue with SNF meds. D% is increased to 100 ml/ hrs. Patient is DNR. Will continue to monitor.
[2018-09-22 10:47] LABS: % BASOPHILS 0.3 % (0.0-2.0); % EOSINOPHILS 1.5 % (0.0-5.0); % LYMPHOCYTES 16.8 % (20.0-50.0); % MONOCYTES 2.9 % (2.0-10.0); % NEUTROPHILS 78.5 % (40.0-80.0); EOSINOPHILE ABSOLUTE 0.1 Th/cmm (0.1-0.4); HEMATOCRIT 31.7 % (41.0-60); HEMOGLOBIN 10.3 gm/dL (12-16); LYMPHOCYTE ABSOLUTE 1.4 Th/cmm (1.5-3.0); MEAN CELL VOLUME 90.9 fl (81-100); MEAN CORPUSCULAR HEMOGLOBIN 29.5 pg (27.0-31.0); MEAN CORPUSCULAR HGB CONC 32.5 pg (28.0-36.0); MEAN PLATELET VOLUME 7.1 fl; MONOCYTE ABSOLUTE 0.2 Th/cmm (0.3-1.0); NEUTROPHILE ABSOLUTE 6.4 Th/cmm (1.8-8.0); PLATELET COUNT 373 Th/cmm (150-400); RED BLOOD COUNT 3.49 Mil/cmm (3.80-5.20); RED CELL DISTRIBUTION WIDTH 13.6 % (11.5-20.0); WHITE BLOOD COUNT 8.1 Th/cmm (4.8-10.8)
[2018-09-22 14:05] LABS: ALB/GLOB RATIO 0.5 (1.0-1.8); ALBUMIN 2.1 gm/dL (3.7-5.3); ANION GAP 13.4 (7.0-16.0); BUN - UREA NITROGEN 20 mg/dL (7-25); CALCIUM SERUM 8.5 mg/dL (8.6-10.3); CHLORIDE 123 mEq/L (98-107); GLUCOSE 352 mg/dL (70-105); POTASSIUM SERUM 3.4 mEq/L (3.5-5.1); SODIUM SERUM 154 mEq/L (136-145); TOTAL PROTEIN,SERUM 6.3 gm/dL (6.0-8.3)
[2018-09-22 14:06] LABS: ALKALINE PHOSPHATASE 84 U/L (34-104); BILIRUBIN,TOTAL 0.2 mg/dL (0.3-1.0); SGOT 18 U/L (13-39); SGPT/ALT 21 U/L (7-52)
[2018-09-22] MEDS: Dextrose 5% 1,000 ML IV SCH (14:17)
[2018-09-22] MEDS ORDERED: Potassium Chloride 20 mEq ER Tab PO ONE (16:09)
[2018-09-22] MEDS: Insulin Detemir 100 units/mL 10mL Vial SUBQ SCH (21:07)
[2018-09-23] MEDS: INSULIN ASPART SLIDING SCALE 100 UNITS/ML UNIT SUBQ SCH ×5 (00:23→16:41)
[2018-09-23] MEDS: Dextrose 5% 1,000 ML IV SCH (02:39)
[2018-09-23] MEDS ORDERED: D5-0.45NS w/20 mEq KCL 1,000 ML IV SCH (05:34)
--- NOTE | 2018-09-23 05:41 | General Progress Note ---
Subjective - Review of Systems Service Date: 09/23/18 Subjective: Patient was seen and examined. Patient is awake, alert. no acute distress. Objective - Results Result Diagrams: 09/22/18 10:42 09/22/18 10:42 Recent Labs: Laboratory Last Values WBC 8.1 Th/cmm (4.8-10.8) 09/22/18 10:42 RBC 3.49 Mil/cmm (3.80-5.20) L 09/22/18 10:42 Hgb 10.3 gm/dL (12-16) L 09/22/18 10:42 Hct 31.7 % (41.0-60) L 09/22/18 10:42 MCV 90.9 fl (81-100) 09/22/18 10:42 MCH 29.5 pg (27.0-31.0) 09/22/18 10:42 MCHC Differential 32.5 pg (28.0-36.0) 09/22/18 10:42 RDW 13.6 % (11.5-20.0) 09/22/18 10:42 Plt Count 373 Th/cmm (150-400) 09/22/18 10:42 MPV 7.1 fl 09/22/18 10:42 Neutrophils % 78.5 % (40.0-80.0) 09/22/18 10:42 Lymphocytes % 16.8 % (20.0-50.0) L 09/22/18 10:42 Monocytes % 2.9 % (2.0-10.0) 09/22/18 10:42 Eosinophils % 1.5 % (0.0-5.0) 09/22/18 10:42 Basophils % 0.3 % (0.0-2.0) 09/22/18 10:42 PT 9.7 SECONDS (9.5-11.5) 09/19/18 15:15 INR 0.93 (0.5-1.4) 09/19/18 15:15 PTT (Actin FS) 21.2 SECONDS (26.0-38.0) L 09/19/18 15:15 Sodium 154 mEq/L (136-145) H 09/22/18 10:42 Potassium 3.4 mEq/L (3.5-5.1) L 09/22/18 10:42 Chloride 123 mEq/L (98-107) H 09/22/18 10:42 Carbon Dioxide 21.0 mEq/L (21.0-31.0) 09/22/18 10:42 Anion Gap 13.4 (7.0-16.0) 09/22/18 10:42 BUN 20 mg/dL (7-25) 09/22/18 10:42 Creatinine 1.0 mg/dL (0.6-1.2) 09/22/18 10:42 Est GFR ( Amer) TNP 09/22/18 10:42 Est GFR (Non-Af Amer) TNP 09/22/18 10:42 BUN/Creatinine Ratio 20.0 09/22/18 10:42 Glucose 352 mg/dL (70-105) H 09/22/18 10:42 POC Glucose 67 MG/DL (70 - 105) L 09/23/18 04:38 Whole Bld Lactic Acid 0.78 mmol/L (0.60-1.99) 09/19/18 19:00 Calcium 8.5 mg/dL (8.6-10.3) L 09/22/18 10:42 Total Bilirubin 0.2 mg/dL (0.3-1.0) L 09/22/18 10:42 AST 18 U/L (13-39) 09/22/18 10:42 ALT 21 U/L (7-52) 09/22/18 10:42 Alkaline Phosphatase 84 U/L (34-104) 09/22/18 10:42 Creatine Kinase 277 U/L (30-223) H 09/19/18 15:15 CK-MB (CK-2) 7.2 ng/mL (0.6-6.3) H 09/19/18 15:15 Troponin I 0.04 ng/mL (0.01-0.05) 09/19/18 15:15 B-Natriuretic Peptide 154.0 pg/mL (5.0-100.0) H 09/19/18 15:15 Total Protein 6.3 gm/dL (6.0-8.3) 09/22/18 10:42 Albumin 2.1 gm/dL (3.7-5.3) L 09/22/18 10:42 Globulin 4.2 gm/dL 09/22/18 10:42 Albumin/Globulin Ratio 0.5 (1.0-1.8) L 09/22/18 10:42 Triglycerides 117 mg/dL (<150) 09/19/18 15:15 Cholesterol 150 mg/dL (<200) 09/19/18 15:15 LDL Cholesterol Direct 76 mg/dL (75-193) 09/19/18 15:15 HDL Cholesterol 47 mg/dL (23-92) 09/19/18 15:15 Amylase 31 U/L (29-103) 09/19/18 15:15 Lipase 19 U/L (11-82) 09/19/18 15:15 Urine Source MIDSTREAM 09/19/18 15:15 Urine Color YELLOW 09/19/18 15:15 Urine Clarity HAZY (CLEAR) 09/19/18 15:15 Urine pH 7.5 (4.6 - 8.0) 09/19/18 15:15 Ur Specific [place] 1.020 (1.005-1.030) 09/19/18 15:15 Urine Protein 100 mg/dL (NEGATIVE) H 09/19/18 15:15 Urine Glucose (UA) 500 mg/dL (NEGATIVE) H 09/19/18 15:15 Urine Ketones NEGATIVE mg/dL (NEGATIVE) 09/19/18 15:15 Urine Blood LARGE (NEGATIVE) H 09/19/18 15:15 Urine Nitrate NEGATIVE (NEGATIVE) 09/19/18 15:15 Urine Bilirubin NEGATIVE (NEGATIVE) 09/19/18 15:15 Urine Urobilinogen 0.2 E.U./dL (0.2 - 1.0) 09/19/18 15:15 Ur Leukocyte Esterase LARGE (NEGATIVE) H 09/19/18 15:15 Urine RBC 5-10 /hpf (0-5) H 09/19/18 15:15 Urine WBC 25-50 /hpf (0-5) H 09/19/18 15:15 Ur Epithelial Cells FEW /lpf (FEW) 09/19/18 15:15 Triple Phos Crystals FEW /hpf (FEW) 09/19/18 15:15 Urine Bacteria 4+ /hpf (NONE SEEN) H 09/19/18 15:15 Serum Ketones NEGATIVE (NEGATIVE) 09/19/18 15:15 - Physical Exam Vitals and I&O: Vital Signs Temp 99.1 F 09/23/18 03:57 Pulse 62 09/23/18 03:57 Resp 18 09/23/18 03:57 BP 107/54 09/23/18 03:57 Pulse Ox 98 09/23/18 03:57 Intake & Output 09/22/18 09/22/18 09/23/18 06:59 18:59 06:59 Intake Total 9016 705 5703 Balance 5433 132 6310 Weight (lbs) 49.305 kg Intake: Intake, IV Amount 5964 142 5220 Dextrose 5% 1,000 ml @ 1000 100 mls/hr IV .Q10H [facility] Rx#:[id number] Dextrose 5% 1,000 ml @ 90 1000 mls/hr IV .Q11H7M [facility] Rx #:[id number] Piperacillin Sodium/ 100 100 50 Tazobact 2.25 gm In Sodium Chloride 0.9% 50 ml @ 100 mls/hr IV Q6HR [facility] Rx#:[id number] Oral 100 Other: # Voids 2 # Bowel Movements 0 Stool Characteristics Soft Weight Source Bedscale Active Medications: Current Medications Acetaminophen (Tylenol 650mg/20.3ml Suspension) 650 mg PO Q6H PRN PRN Reason: Pain or Fever >101 Stop: 11/18/18 22:24 Last Admin: 09/19/18 22:53 Dose: 650 mg Amlodipine Besylate (Norvasc) 2.5 mg PO Q12HR [facility] Stop: 11/19/18 08:59 Last Admin: 09/22/18 21:07 Dose: 2.5 mg Cholecalciferol (Vitamin D3) 1,000 iu PO DAILY [facility] Stop: 11/19/18 08:59 Last Admin: 09/22/18 08:12 Dose: 1,000 iu Docusate Sodium (Colace) 100 mg PO BID [facility] Stop: 11/19/18 08:59 Last Admin: 09/22/18 17:10 Dose: 100 mg Piperacillin Sod/Tazobactam (Sod 2.25 gm/ Sodium Chloride) 50 mls @ 100 mls/hr IV Q6HR [facility]; Protocol Stop: 11/19/18 00:00 Last Admin: 09/23/18 05:25 Dose: 100 mls/hr Potassium Chloride/Dextrose/Sod Cl (D5-0.45ns W/20 Meq Kcl) 1,000 mls @ 50 mls/ hr IV .Q20H [facility] Stop: 11/22/18 05:33 Insulin Aspart (Novolog Insulin Sliding Scale) 0 units SUBQ Q4HR [facility]; Protocol Stop: 11/20/18 07:59 Last Admin: 09/23/18 05:06 Dose: Not Given Insulin Detemir (Levemir Insulin) 17 units SUBQ HS [facility] Stop: 11/19/18 20:59 Last Admin: 09/22/18 21:07 Dose: 17 units Simvastatin (Zocor) 40 mg PO HS [facility]; Protocol Stop: 11/19/18 20:59 Last Admin: 09/22/18 21:06 Dose: 40 mg Tramadol HCl (Ultram) 50 mg PO Q6HR PRN PRN Reason: Pain (Moderate) Stop: 11/18/18 22:23 General: Alert, Other (Confused) HEENT: Atraumatic Neck: Supple Cardiovascular: Regular rate Lungs: Clear to auscultation Abdomen: Bowel sounds Extremities: Other (No edema) Neurological: Other (Non ambulatory) Skin: Other (Warm and dry) Psych/Mental Status: Other (Confused) Assessment/Plan - Assessment Assessment: ALOC Hyperglycemia hypernatremia UTI +Proteus +E.Coli leukocytosis HTN CAD Psychosis - Plan Plan: continue current treatment
[2018-09-23 07:03] LABS: % BASOPHILS 0.4 % (0.0-2.0); % EOSINOPHILS 1.9 % (0.0-5.0); % LYMPHOCYTES 35.1 % (20.0-50.0); % MONOCYTES 3.7 % (2.0-10.0); % NEUTROPHILS 58.9 % (40.0-80.0); EOSINOPHILE ABSOLUTE 0.2 Th/cmm (0.1-0.4); HEMATOCRIT 32.8 % (41.0-60); HEMOGLOBIN 10.8 gm/dL (12-16); LYMPHOCYTE ABSOLUTE 2.9 Th/cmm (1.5-3.0); MEAN CELL VOLUME 91.2 fl (81-100); MEAN CORPUSCULAR HGB CONC 32.9 pg (28.0-36.0); MEAN PLATELET VOLUME 7.3 fl; MONOCYTE ABSOLUTE 0.3 Th/cmm (0.3-1.0); PLATELET COUNT 366 Th/cmm (150-400); RED CELL DISTRIBUTION WIDTH 13.5 % (11.5-20.0); WHITE BLOOD COUNT 8.4 Th/cmm (4.8-10.8)
[2018-09-23 07:25] LABS: ALB/GLOB RATIO 0.8 (1.0-1.8); ALKALINE PHOSPHATASE 75 U/L (34-104); ANION GAP 11.7 (7.0-16.0); BILIRUBIN,TOTAL 0.4 mg/dL (0.3-1.0); BUN - UREA NITROGEN 14 mg/dL (7-25); CALCIUM SERUM 8.6 mg/dL (8.6-10.3); CARBON DIOXIDE 27.2 mEq/L (21.0-31.0); CHLORIDE 116 mEq/L (98-107); CREATININE - SERUM 0.9 mg/dL (0.6-1.2); POTASSIUM SERUM 3.9 mEq/L (3.5-5.1); SGOT 18 U/L (13-39); SGPT/ALT 14 U/L (7-52); SODIUM SERUM 151 mEq/L (136-145); TOTAL PROTEIN,SERUM 6.6 gm/dL (6.0-8.3)
[2018-09-23 08:05] LABS: GLUCOSE 111 mg/dL (70-105)
[2018-09-23] MEDS: Multivitamin w/ Minerals Tab PO SCH (09:42)
== END 2018-09-23 18:57 | DRG 871 ==
LOC: ER 14:21 → MSI 20:12
PROVIDERS: ADMIT Internal Medicine; ATTEND Internal Medicine
DX: A41.9 Sepsis, unspecified organism (principal); G93.41 Metabolic encephalopathy; E43 Unspecified severe protein-calorie malnutrition; N39.0 Urinary tract infection, site not specified; E87.0 Hyperosmolality and hypernatremia; E86.0 Dehydration; I10 Essential (primary) hypertension; E78.5 Hyperlipidemia, unspecified; F03.90 Unspecified dementia, unspecified severity, without behavioral disturbance, psychotic disturbance, mood disturbance, and anxiety; M19.90 Unspecified osteoarthritis, unspecified site; E11.65 Type 2 diabetes mellitus with hyperglycemia; I25.10 Atherosclerotic heart disease of native coronary artery without angina pectoris; Z66 Do not resuscitate; B96.4 Proteus (mirabilis) (morganii) as the cause of diseases classified elsewhere; B96.20 Unspecified Escherichia coli [E. coli] as the cause of diseases classified elsewhere; F29 Unspecified psychosis not due to a substance or known physiological condition; Z83.3 Family history of diabetes mellitus; Z82.49 Family history of ischemic heart disease and other diseases of the circulatory system; Z79.4 Long term (current) use of insulin
CPT/HCPCS: 36415-UA; 80053-TC; 80061-TC; 81001-TC; 82010-TC; 82150-TC; 82550-TC; 82553; 82948-90; 83036-90; 83605; 83690-TC; 83880-TC; 83930-90; 84484-TC; 85025-TC; 85610-TC; 85730-TC; 87086-90; 90784; 93005; J0696; J1815; J2543; J3480; J7040; J7042; J7070; Z7610